=== PATIENT | female | born 1960 | race Caucasian/White ===

== ENCOUNTER 2017-03-02 10:41 | Emergency (ER) | payer OTHER ==
--- NOTE | 2017-03-02 12:01 | C.PDOC ---
History Of Present Illness HISTORY OBTAINED VIA [employer] 57-YEAR-OLD FEMALE, PRESENTS TO THE EMERGENCY DEPARTMENT WITH COMPLAINTS OF A HEADACHE AND VERTIGO LIKE SX X 3 DAYS. SYMPTOMS ARE WORSE W POSITION CHANGE. NO N/V. NO FEVER. PATIENT IS ALSO COMPLAINING OF POLYURIA, POLYDYSPSIA. NO ABD PAIN , HO DM EXAM +REPRODUC VERTIGO W HEAD POSITION CHANGE NEURO INTACT Time Seen by Provider: 03/02/17 11:15 Chief Complaint (Nursing): Headache History Per: Patient History/Exam Limitations: no limitations Current Symptoms Are (Timing): Still Present Severity: Moderate Past Medical History Reviewed: Historical Data, Nursing Documentation, Vital Signs Vital Signs: Last Vital Signs Temp 98.3 F 03/02/17 12:30 Pulse 69 03/02/17 12:30 Resp 20 03/02/17 12:30 BP 132/87 03/02/17 12:30 Pulse Ox 98 03/02/17 12:30 - Medical History PMH: Hypercholesterolemia - [facility] Procedures CLOSURE SKIN & SUBCUTANEOUS NEC (02/27/14) TETANUS TOXOID ADMINIST (02/27/14) Family History: States: No Known Family Hx - Social History Hx Tobacco Use: Yes Hx Alcohol Use: Yes Hx Substance Use: No - Immunization History Hx Tetanus Toxoid Vaccination: No Hx Influenza Vaccination: No Hx Pneumococcal Vaccination: No Review Of Systems Except As Marked, All Systems Reviewed And Found Negative. Constitutional: Positive for: Other (polyuria, polydipsia). Negative for: Fever , Chills Gastrointestinal: Negative for: Nausea, Vomiting Musculoskeletal: Negative for: Back Pain Neurological: Positive for: Headache, Dizziness Physical Exam - Physical Exam Appears: Non-toxic, No Acute Distress Head: Atraumatic, Normacephalic Eye(s): bilateral: Normal Inspection, PERRL, EOMI, Other ((-)nystagmus) Oral Mucosa: Moist Neck: Normal ROM Cardiovascular: Rhythm Regular, No Murmur Respiratory: Normal Breath Sounds, No Accessory Muscle Use Extremity: Normal ROM Neurological/Psych: Oriented x3, Normal Speech, Other (+REPRODUC VERTIGO W HEAD POSITION CHANGE) ED Course And Treatment Reevaluation Time: 13:32 Reassessment Condition: Improved Disposition Counseled Patient/Family Regarding: Studies Performed, Diagnosis, Need For Followup - Disposition Referrals: [facility] [Outside] [facility] [Outside] Disposition: HOME/ ROUTINE Disposition Time: 13:32 Condition: IMPROVED Instructions: Rhinosinusitis (ED) Print Language: CYPRIOT - Clinical Impression Clinical Impression: Headache, Sinusitis - Scribe Statement The provider has reviewed the documentation as recorded by the eLela Zuluaga All medical record entries made by the Leela were at my direction and personally dictated by me. I have reviewed the chart and agree that the record accurately reflects my personal performance of the history, physical exam, medical decision making, and the department course for this patient. I have also personally directed, reviewed, and agree with the discharge instructions and disposition.
[2017-03-02 12:04] LABS: RBC URINE 1 /hpf (0-3); URINE BACTERIA RARE (<OCC); URINE BILIRUBIN NEGATIVE (NEGATIVE); URINE BLOOD NEGATIVE (NEGATIVE); URINE COLOR Yellow (YELLOW); URINE GLUCOSE (UA) NORMAL (Normal); URINE KETONE NEGATIVE (NEGATIVE); URINE LEUKOCYTE ESTERASE TRACE Leu/uL (Negative); URINE PROTEIN NEGATIVE (NEGATIVE); URINE UROBILINOGEN NORMAL mg/dL (0.2-1.0); WBC URINE 6 /hpf (0-5)
[2017-03-02 12:35] VITALS: BP 132/87; PULSE 69; RESP 20; TEMP 98.3; O2SAT 98
--- NOTE | 2017-03-02 13:17 | CT ---
PROCEDURE: CT HEAD WITHOUT CONTRAST. HISTORY: VERTIGO COMPARISON: None available. TECHNIQUE: Axial computed tomography images were obtained through the head/brain without intravenous contrast. Radiation dose: Total exam DLP = 855 mGy-cm. This CT exam was performed using one or more of the following dose reduction techniques: Automated exposure control, adjustment of the mA and/or kV according to patient size, and/or use of iterative reconstruction technique. FINDINGS: HEMORRHAGE: No intracranial hemorrhage. BRAIN: No mass effect or edema. No atrophy or chronic microvascular ischemic changes. VENTRICLES: Unremarkable. No hydrocephalus. CALVARIUM: Unremarkable. PARANASAL SINUSES: Moderate mucosal thickening and opacification with fluid levels seen within the bilateral maxillary sinuses and sphenoid sinus. Question mucosal retention cyst and or polyp in the right maxillary sinus which is only partially imaged. Mucosal thickening of the ethmoid air cells. MASTOID AIR CELLS: Unremarkable as visualized. No inflammatory changes. OTHER FINDINGS: None. IMPRESSION: No acute intracranial abnormality. Sinus mucosal disease as above. These findings were preliminarily reported at 12:39 p.m. on 03/02/[address] Gunner Murry from [facility].
== END 2017-03-02 14:30 | disposition home or self-care (01) ==
LOC: C.ER 10:41
DX: R51 Headache (principal); J32.9 Chronic sinusitis, unspecified; Z72.0 Tobacco use